=== PATIENT | male | born 1985 | race African-American/Black ===

== ENCOUNTER 2019-10-24 21:13 | Emergency (ER) | payer MEDICAID ==
[~2019-10-24] VITALS: Ht 180.3 cm; Wt 66.0 kg
[2019-10-24 23:12] VITALS: BP 106/64
== END 2019-10-24 23:18 | disposition home or self-care (01) ==
LOC: ER 21:13
DX: J06.9 Acute upper respiratory infection, unspecified (principal)
CPT/HCPCS: 71045; 99283

== ENCOUNTER 2020-02-01 10:13 | Emergency (ER) | payer MEDICAID ==
[~2020-02-01] VITALS: Ht 180.3 cm; Wt 68.0 kg
[2020-02-01 10:16] VITALS: BP 126/53
[2020-02-01] MEDS ORDERED: CEFTRIAXONE SODIUM 250 MG/VIAL IM ONE (10:45)
[2020-02-01 11:26] LABS: CLARITY URINE CLEAR (CLEAR); COLOR URINE YELLOW (YELLOW); KETONES URINE NEGATIVE (NEGATIVE); LEUKOCYTE ESTERASE URINE 2+ (NEGATIVE); NITRITE URINE NEGATIVE (NEGATIVE); OCCULT BLOOD URINE TRACE (NEGATIVE); PH URINE 5.5 (4.5-8.0); PROTEIN URINE NEGATIVE (NEGATIVE); SPECIFIC GRAVITY URINE 1.014 (1.005-1.030); UROBILINOGEN URINE 0.2 E.U./dL (0.2-1.0)
[2020-02-04 04:06] LABS: NEISSERIA GONORRHOEAE NAA Positive (Negative)
== END 2020-02-01 11:39 | disposition home or self-care (01) ==
LOC: ER 10:13
DX: A54.01 Gonococcal cystitis and urethritis, unspecified (principal)
CPT/HCPCS: 81003; 87086; 87491; 87591; 96372; 99283; J0696

== ENCOUNTER 2020-02-11 15:30 | Emergency (ER) | payer MEDICAID ==
[~2020-02-11] VITALS: Ht 180.3 cm; Wt 69.0 kg
[2020-02-11 15:34] VITALS: BP 113/38
[2020-02-11] MEDS ORDERED: CARBAMIDE PEROXIDE 6.5% OTIC SOLN 15ML RIGHT EAR ONE (16:00)
== END 2020-02-11 16:54 | disposition left against medical advice (07) ==
LOC: ER 15:30
DX: H91.91 Unspecified hearing loss, right ear (principal)
CPT/HCPCS: 99281

== ENCOUNTER 2020-11-12 09:01 | Emergency (ER) | payer MEDICAID ==
[~2020-11-12] VITALS: Ht 180.3 cm; Wt 69.0 kg
[2020-11-12 09:07] VITALS: BP 128/64
[2020-11-12] MEDS ORDERED: IBUP-2029 MT (09:26)
[2020-11-12] MEDS ORDERED: BACL-141 MT (09:26)
[2020-11-12] MEDS ORDERED: DEXAMETHASONE 10 MG/ML VIAL IV ONE (09:30)
[2020-11-12] MEDS ORDERED: KETOROLAC 30MG/ML VIAL IM ONE (09:30)
== END 2020-11-12 10:01 | disposition home or self-care (01) ==
LOC: ER 09:01
DX: M79.651 Pain in right thigh (principal); Z13.9 Encounter for screening, unspecified
CPT/HCPCS: 96372; 96374; 99283; J1100; J1885